=== PATIENT | male | born 1960 | race Caucasian/White ===

== ENCOUNTER 2016-05-25 13:27 | Day surgery (SDC) | payer OTHER ==
[~2016-05-25] VITALS: Ht 185.4 cm; Wt 94.0 kg
[~2016-05-25 13:27] MED LIST: LISI-567 PO; OMEP20CA11 PO; SIMV20TA4 PO; TRAZ-118 PO; fentaNYL-PF 50 mCg/mL 2 mL Inj IVPUSH PRN
[2016-05-25] MEDS ORDERED: Lidocaine Topical 2% 30 mL Jelly ONE (13:42)
[2016-05-25 14:21] VITALS: BP 145/98; PULSE 86; RESP 14; O2SAT 98
[2016-05-25 15:28] VITALS: BP 125/93; PULSE 90; RESP 16; O2SAT 96
[2016-05-25 15:37] VITALS: BP 96/62; PULSE 86; RESP 16; O2SAT 95
[2016-05-25 15:47] VITALS: BP 93/58; PULSE 81; RESP 16; O2SAT 94
[2016-05-25 15:57] VITALS: BP 112/78; PULSE 76; RESP 16; O2SAT 94
--- NOTE | 2016-05-25 20:22 | ENDO ---
[address] [address] ENDOSCOPY PROCEDURE PATIENT: KOURTNEY THOMAS : 1960 MR#: [id number] ADMIT: 05/25/2016 JOB ID: [id number] PREPROCEDURAL DIAGNOSIS: Dysphagia. POSTPROCEDURAL DIAGNOSIS: Dysphagia. PROCEDURE PERFORMED: Upper endoscopy with biopsies and CARDONA pH probe placement. SURGEON: Xin Cooney MD FINDINGS: 1. Normal esophagus. 2. Small polyps in the fundus of the stomach, biopsied. Otherwise normal stomach. 3. Normal duodenum to the third portion. MEDICATIONS: Versed 7 mg, fentanyl 125 mcg. INSTRUMENT: Olympus GIF H 180. SPECIMENS: 1. Polyp in the fundus of the stomach. 2. GE junction. HISTORY OF PRESENT ILLNESS: This is a 56-year-old man who had a very severe episode of dysphagia while traveling, and he has a long history of many years of mild dysphagia as well. Due to the recent severity of his symptoms, upper endoscopy was indicated. DESCRIPTION OF PROCEDURE: The patient was brought to the endoscopy suite and placed in the left lateral decubitus position. Moderate sedation was induced. A bite block was placed. The upper endoscope was advanced into the proximal esophagus. The entire esophagus appeared normal. There was no hiatal hernia. The gastroesophageal junction was at 41 cm. Although the squamocolumnar junction appeared normal, and the scope passed through it easily, it appeared to be mildly narrowed. For this reason, two biopsies were obtained in order to break the mucosa at that site given the patient's previous history of dysphagia. The endoscope was advanced into the stomach. There were two small polyps in the fundus of the stomach which appeared benign; one was removed with cold biopsy forceps. On retroflexed view, a Hill grade 2 flap valve was identified. The pylorus was normal. The endoscope was advanced to the proximal 3rd portion of the duodenum. The entire visualized duodenum was normal. The endoscope was then removed and the Cardona pH probe was advanced to 35 cm, 6 cm above the gastroesophageal junction. It was deployed and the catheter was removed. The upper endoscope was advanced to 35 cm to confirm adequate positioning of the Cardona probe. The endoscope was then removed. The patient tolerated the procedure well. ESTIMATED BLOOD LOSS: 5 mL. SPECIMENS: Polyp of the gastric fundus and GE junction. COMPLICATIONS: None. MTDD
--- NOTE | 2016-05-29 10:40 | PATH ---
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 Negative for Helicobacter organisms. Negative for intestinal metaplasia. No evidence of dysplasia or malignancy. 2.GE JUNCTION BIOPSY: ESOPHAGEAL SQUAMOUS EPITHELIUM AND GASTRIC GLANDULAR MUCOSA WITH CHRONIC ACTIVE INFLAMMATION. Negative for intestinal metaplasia. No evidence of malignancy or dysplasia. ICD10 code K20.9 GROSS DESCRIPTION: The specimen is received in two formalin filled containers labeled with the patient's name. 1). The specimen is sublabeled "fundal polyp" and consists of a 0.3 x 0.3 x 0.3 CM portion of tissue which is entirely submitted in cassette 1A. 2). The specimen is sublabeled " GEJ " and consists of a 0.4 x 0.2 x 0.2 CM portion of tissue which is entirely submitted in cassette 2A. 05/26/2016 DAC MICRO DESCRIPTION: See diagnosis. ICD-9 CODES: CPT CODES: 1: 11563 2: 31146 Electronically Signed Out Michael Burris MD [facility] [address], [place] [address] Technical component performed at [facility], [facility] [address], [place], [address]
== END 2016-05-25 23:59 | disposition home or self-care (01) ==
LOC: END 13:27
PROVIDERS: ATTEND Surgery
DX: R13.10 Dysphagia, unspecified (principal); K31.7 Polyp of stomach and duodenum; K29.50 Unspecified chronic gastritis without bleeding; K21.9 Gastro-esophageal reflux disease without esophagitis; R94.8 Abnormal results of function studies of other organs and systems
CPT/HCPCS: 43239; 91010; 91037; 99153; G0500; J2250; J7030

== ENCOUNTER 2016-05-29 | Day surgery (SDC) | payer OTHER ==
[~2016-05-29] MED LIST changes: -TRAZ-118 PO; -fentaNYL-PF 50 mCg/mL 2 mL Inj IVPUSH PRN
== END 2016-05-29 23:59 | disposition home or self-care (01) ==